=== PATIENT | male | born 1975 | race Two or more races ===

== ENCOUNTER 2016-08-03 12:25 | Emergency (ER) | payer OTHER, SELFPAY ==
--- NOTE | ~2016-08-03 | ER ---
PATIENT'S NAME: [facility]IA [facility] AGE: 41 Y [address] ROOM: [place] [address] LOCATION: [facility] ADMIT DATE: 08/03/2016 ER/Outpatient Report DISCHARGE DATE: 08/03/2016 FAMILY PHYSICIAN: Physician, Unknown ATTENDING PHYSICIAN: Adriane Madrigal Time of Evaluation: 1235 hours. HISTORY OF PRESENT ILLNESS: The patient is a 41-year-old [place]. States he was opening a glass jar when it broke causing a laceration to the palm of his left hand. The patient states that he did pull a piece of glass from the wound. ALLERGIES: NO MEDICINAL ALLERGIES. HOME MEDICATIONS: Include ibuprofen. PAST MEDICAL HISTORY: The patient gives no history of any chronic diseases. IMMUNIZATION: Tetanus status contreras unknown. SOCIAL HISTORY: Chews tobacco. Alcohol occasionally. REVIEW OF SYSTEMS: GENERAL: Health good. MUSCULOSKELETAL: Denied any loss of function as far as his left hand. NEURO: No numbness or tingling to his fingers. PHYSICAL EXAMINATION: Exam of his left hand on the palmar side, there was a 3 cm and somewhat U- shaped laceration at the thenar emesis. There was an abraded area just superior to that. ASSESSMENT: A 3 cm laceration, palmar surface, left hand. PLAN AND TREATMENT: The area was anesthetized with 1% Xylocaine with epinephrine. The wound was explored. There was no visible glass present. He also had normal flexion and extension of his fingers and also had good sensation distally to the PATIENT'S NAME: MAIA [facility] AGE: 41 Y [address] ROOM: [place] [address] LOCATION: [facility] ADMIT DATE: 08/03/2016 ER/Outpatient Report DISCHARGE DATE: 08/03/2016 FAMILY PHYSICIAN: Physician, Unknown ATTENDING PHYSICIAN: Adriane Madrigal A laceration. No signs of any nerve injury. The wound was then irrigated with normal saline and closed with 4-0 Prolene interrupted sutures x6. Sterile dressing applied. He was also given a tetanus update. The patient was advised on wound care. I advised that is always a chance there could be a piece of glass remaining that we were unable to find or see by the x-ray we did. Otherwise, he is to remove his sutures in one week. Watch for any signs of infection. He was given a handout on wound care. CORA HERNANDEZ FOR MD MELISSA TIJERINA/jorge luis /[id number] d: 08/03/167 t: 08/09/16 0757, OUTPATIENT REPORT
== END 2016-08-03 13:36 | disposition disaster alternative care site (69) ==
LOC: GACC 12:25
PROC: 0HQGXZZ Repair Left Hand Skin, External Approach (ICD-10-PCS; principal; 2016-08-03)
DX: S61.412A Laceration without foreign body of left hand, initial encounter (principal); Z23 Encounter for immunization; W25.XXXA Contact with sharp glass, initial encounter